=== PATIENT | female | born 1985 | race American Indian/Alaskan Native ===

== ENCOUNTER 2022-06-13 08:16 | Emergency (ER) | payer MEDICAID ==
--- NOTE | 2022-06-13 12:06 | Emergency Department Report ---
ED General Adult HPI - General Chief complaint: Weakness Stated complaint: WEAKNESS/LOW BP PUI?: No Time Seen by Provider: 06/13/22 12:00 Source: patient, EMS Mode of arrival: Stretcher Limitations: No Limitations - History of Present Illness Initial comments: This is a 35-year-old female with medical history of fibromyalgia and also iron deficient anemia came in today with concerns of feeling dizziness and also lightheadedness. Patient also endorsed feeling fatigued. Patient denies desire of pica. Patient said that she has not eating anything for the past 1 days as she was training for [place]. Patient current denies any fever chill night sweat dizziness blurred vision lightheadedness headache tinnitus ear pain runny nose sore throat loss of taste loss smell chest pain palpitation short of breath cough abdominal pain nausea vomiting diarrhea constipation joint pain muscle pain new rash and heat or cold intolerance. Severity scale (0 -10): 6 - Related Data Allergies Allergy/AdvReac Type Severity Reaction Status Date / Time gabapentin Allergy Unknown Verified 06/13/22 08:41 ibuprofen Allergy Unknown Verified 06/13/22 08:40 naproxen AdvReac Unknown Verified 06/13/22 08:40 ED Review of Systems ROS: Stated complaint: WEAKNESS/LOW BP Other details as noted in HPI Comment: All other systems reviewed and negative Constitutional: see HPI, weakness Eyes: as per HPI ENT: as per HPI Respiratory: no symptoms reported, see HPI Cardiovascular: as per HPI, chest pain Endocrine: no symptoms reported, see HPI Gastrointestinal: as per HPI Genitourinary: as per HPI Musculoskeletal: as per HPI Skin: as per HPI Neurological: as per HPI Psychiatric: as per HPI Hematological/Lymphatic: as per HPI ED Past Medical Hx - Past Medical History Previous Medical History?: Yes Additional medical history: FIBROMYALGIA, ANEMIA - Social History Smoking Status: Current Every Day Smoker Substance Use Type: None ED Physical Exam - General Limitations: No Limitations General appearance: alert, in no apparent distress - Head Head exam: Present: atraumatic, normocephalic, normal inspection - Eye Eye exam: Present: normal appearance, PERRL, EOMI Pupils: Present: normal accommodation - ENT ENT exam: Present: normal exam, mucous membranes moist - Neck Neck exam: Present: normal inspection - Respiratory Respiratory exam: Present: normal lung sounds bilaterally - Cardiovascular Cardiovascular Exam: Present: regular rate, normal rhythm - GI/Abdominal GI/Abdominal exam: Present: soft - Extremities Exam Extremities exam: Present: normal inspection, full ROM, normal capillary refill - Back Exam Back exam: Present: normal inspection, full ROM - Neurological Exam Neurological exam: Present: alert, altered, oriented X3, CN II-XII intact - Psychiatric Psychiatric exam: Present: normal affect, normal mood - Skin Skin exam: Present: normal color ED Course Vital Signs 06/13/22 06/13/22 06/13/22 08:33 09:29 09:30 Temperature 98.1 F Pulse Rate 76 92 H Respiratory 16 17 Rate Blood Pressure Blood Pressure 100/73 94/54 [Left] O2 Sat by Pulse 98 100 99 Oximetry 06/13/22 06/13/22 06/13/22 09:31 09:46 10:00 Temperature Pulse Rate Respiratory 17 Rate Blood Pressure 98/55 94/54 Blood Pressure [Left] O2 Sat by Pulse 99 99 Oximetry 06/13/22 06/13/22 06/13/22 10:16 10:30 10:46 Temperature Pulse Rate Respiratory Rate Blood Pressure 94/54 98/55 94/53 Blood Pressure [Left] O2 Sat by Pulse 99 100 Oximetry 06/13/22 06/13/22 06/13/22 11:00 11:16 11:30 Temperature Pulse Rate Respiratory Rate Blood Pressure 94/53 94/53 94/53 Blood Pressure [Left] O2 Sat by Pulse 99 100 100 Oximetry 06/13/22 06/13/22 06/13/22 11:46 12:01 12:15 Temperature Pulse Rate Respiratory Rate Blood Pressure 89/49 94/53 94/53 Blood Pressure [Left] O2 Sat by Pulse 99 88 82 L Oximetry 06/13/22 12:35 Temperature Pulse Rate Respiratory Rate Blood Pressure 94/53 Blood Pressure [Left] O2 Sat by Pulse 100 Oximetry ED Medical Decision Making - Lab Data Result diagrams: 06/13/22 12:14 06/13/22 12:14 Critical care attestation.: If time is entered above; I have spent that time in minutes in the direct care of this critically ill patient, excluding procedure time. ED Disposition Clinical Impression: Weakness, Hungry Disposition: 01 HOME / SELF CARE / HOMELESS Is pt being admited?: No Does the pt Need Aspirin: No Condition: Stable Instructions: Weakness Referrals: PRIMARY CARE, [Primary Care Provider] - 3-5 Days Forms: Work/School Release Form(ED) Time of Disposition: 13:08
[2022-06-13 12:37] VITALS: BP 94/53
[2022-06-13 12:42] LABS: Hematocrit 36.7 % (30.3-42.9); Hemoglobin 12.4 gm/dl (10.1-14.3); Mean Corpuscular HGB Conc 34 % (30-34); Mean Corpuscular Volume 100 fl (79-97); Platelet Count 219 K/mm3 (140-440); Red Blood Count 3.66 M/mm3 (3.65-5.03); Red Cell Distribution Width 13.6 % (13.2-15.2)
[2022-06-13 12:58] LABS: Alanine Aminotransferase 22 units/L (7-56); Albumin 4.5 g/dL (3.9-5); Blood Urea Nitrogen 10 mg/dL (7-17); Calcium 9.2 mg/dL (8.4-10.2); Hemolysis Index 5
[2022-06-13 13:11] LABS: BUN/Creatinine Ratio 17
== END 2022-06-13 13:12 | disposition home or self-care (01) ==
LOC: ED 08:16
DX: T73.0XXA Starvation, initial encounter (principal); R53.1 Weakness; D64.9 Anemia, unspecified; M79.7 Fibromyalgia; F17.290 Nicotine dependence, other tobacco product, uncomplicated; Z88.6 Allergy status to analgesic agent; Z88.8 Allergy status to other drugs, medicaments and biological substances; X58.XXXA Exposure to other specified factors, initial encounter
CPT/HCPCS: 36415; 80053; 83735; 85027; 99283